=== PATIENT | female | born 1965 | race Caucasian/White ===

== ENCOUNTER → 2017-03-22 | Day surgery (SDC) | payer BC ==
[~2017-03-22] MED LIST: NO MEDICATIONS
--- NOTE | ~2017-03-22 | OR ---
Unit #: [id number] #: [id number] Patient: BECKY LEVI [id number] [address] [address] [id number] O MR#: [id number] NAME: BECKY LEVI. ROOM: Date of Procedure: 03/22/2017 Admission Date: 03/22/2017 Surgeon: Akbar Rodriges M.D. : 1965 Attending Physician: Akbar Rodriges M.D. Primary Care Physician: Primary Care Physician No OPERATIVE REPORT PREOPERATIVE DIAGNOSES 1. Reflux symptoms. 2. Left lower quadrant pain. POSTOPERATIVE DIAGNOSES 1. Reflux symptoms. 2. Left lower quadrant pain. PROCEDURES PERFORMED 1. Esophagogastroduodenoscopy. 2. Biopsy of antrum for Helicobacter pylori testing. 3. Colonoscopy to cecum. ANESTHESIA Monitored anesthesia care. FINDINGS The patient was found on upper endoscopy to have a small hiatal hernia as well as mild gastritis and mild distal esophagitis. 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 SPECIMENS Sent to pathology. COMPLICATIONS None apparent. CONDITION The patient tolerated the procedure well. INDICATIONS FOR PROCEDURE The patient is a 51-year-old white female, who has reflux symptoms and also intermittent left lower quadrant pain and was recently diagnosed with what was felt to be diverticulitis. She presents at this time for evaluation by upper as well as lower endoscopy. DESCRIPTION OF PROCEDURE After obtaining informed consent, the patient was brought to the endoscopy suite and after adequate monitored anesthesia care, had the endoscope placed through the mouth into the upper esophagus under direct vision. It was advanced to the second portion of the duodenum without difficulty with lumen always in view. The duodenum was normal as was the duodenal bulb. Unit #: [id number] #: [id number] Patient: BECKY LEVI The pylorus opened normally. There was some mild distal gastritis present and a biopsy was obtained for Helicobacter pylori testing. On retroflexing back to the GE junction, there was a small hiatal hernia seen. No other abnormalities were found in the proximal third, middle third, or incisura. On pulling back above the GE junction, there was no stenosis, stricture, or neoplasm seen, but there was some mild distal esophagitis. The remaining portion of the esophagus was within normal limits. Laryngeal structures were grossly normal as viewed from above. At this point in time, the colonoscope was placed through the anus and slowly advanced with the lumen always in view to the level of the cecum. The cecum was normal as was the ileocecal valve. The patient had scattered eli-diverticular disease present throughout the colon, most numerous in the sigmoid colon. Other than this, there was no abnormality seen in the ascending colon, hepatic flexure, transverse colon, splenic flexure, descending colon, sigmoid colon, or rectum. On retroflexing in the rectum to the anorectal junction, there was no significant abnormality seen. The scope was removed without difficulty. The patient tolerated the procedure well and went from the endoscopy suite to the recovery area in stable condition. RECOMMENDATIONS High-fiber diet, lots of liquids, tucks or wipes p.r.n. Gastroesophageal reflux sheet given. Diverticular sheet given. Use [id number] Pepcid p.r.n. for reflux symptoms. Dictated by... Marcell Cabrales/carlita TD: 03/22/2017 14:21 JOB #: [id number] CC: [facility] Ela Giron M.D. OPERATIVE REPORT Page 1 of 1 X Akbar Rodriges MD X PROCEDURE OPERATIVE NOTE
== END | disposition home or self-care (01) ==
LOC: COPS 10:09
DX: K57.30 Diverticulosis of large intestine without perforation or abscess without bleeding (principal); K29.70 Gastritis, unspecified, without bleeding; K21.0 Gastro-esophageal reflux disease with esophagitis; K44.9 Diaphragmatic hernia without obstruction or gangrene; Z88.5 Allergy status to narcotic agent; Z98.51 Tubal ligation status; Z90.49 Acquired absence of other specified parts of digestive tract; Z98.890 Other specified postprocedural states
CPT/HCPCS: 87077